=== PATIENT | female | born 1975 | race Hispanic/Latino ===

== ENCOUNTER 2024-11-01 09:28 | Outpatient (CLI) | payer BC | END 2024-11-01 09:29 | disposition home or self-care (01) | LOC: CSHWCC 09:28 | PROVIDERS: ATTEND Nurse Practitioner Family | DX: E11.622 Type 2 diabetes mellitus with other skin ulcer (principal); L97.821 Non-pressure chronic ulcer of other part of left lower leg limited to breakdown of skin; I87.2 Venous insufficiency (chronic) (peripheral) | CPT/HCPCS: 11042 ==

== ENCOUNTER 2024-11-09 08:45 | Outpatient (CLI) | payer BC | END 2024-11-09 08:46 | disposition home or self-care (01) | LOC: CSHWCC 08:45 | PROVIDERS: ATTEND Nurse Practitioner Family | DX: E11.622 Type 2 diabetes mellitus with other skin ulcer (principal); L97.821 Non-pressure chronic ulcer of other part of left lower leg limited to breakdown of skin; I87.2 Venous insufficiency (chronic) (peripheral) | CPT/HCPCS: 97597 ==